=== PATIENT | female | born 1980 | race Caucasian/White ===

== ENCOUNTER 2017-12-14 19:38 | Emergency (ER) | payer SELFPAY ==
[~2017-12-14] VITALS: Ht 162.6 cm; Wt 91.4 kg
[2017-12-14 19:50] VITALS: BP 140/95
--- NOTE | 2017-12-14 19:54 | NUR ---
PT RETURNED TO LOBBY IN STABLE CONDITION
--- NOTE | 2017-12-14 20:42 | NUR ---
1ST CALL N/A PATIENT LEFT WITHOUT BEING SEEN BY DR. ABURTO. NO FURTHER CARE PROVIDED FOR PATIENT. 2044-2ND CALL N/A 2054-N/A
== END 2017-12-14 20:42 | disposition left against medical advice (07) ==
LOC: MED 19:38
DX: K91.841 Postprocedural hemorrhage of a digestive system organ or structure following other procedure (principal); Z53.21 Procedure and treatment not carried out due to patient leaving prior to being seen by health care provider